=== PATIENT | female | born 1980 | race Caucasian/White ===

== ENCOUNTER 2023-08-06 12:32 | Outpatient (CLI) | payer OTHER, SELFPAY ==
--- NOTE | ~2023-08-06 | MR_ITS ---
EXAMINATION: MR abdomen wo/w con DATE: 08/06/2023 13:23 INDICATION: Liver mass. Right abdominal pain. TECHNIQUE: Magnetic resonance imaging (MRI) of the abdomen was performed without and with 14 mL Multi Leonardo intravenous contrast. COMPARISON: CT abdomen and pelvis 09/30/2018 FINDINGS: There are 13 mm and 5 mm cysts in the liver. There is sludge in the gallbladder which is normal in si ze. The pancreas, spleen, adrenal glands, and right kidney are normal. There is a 6 mm cyst in left k idney. There are no dilated loops of bowel. There is a supraumbilical ventral hernia containing nonob structed transverse colon. There are no pathologically enlarged lymph nodes. There is no ascites. IMPRESSION: 1. Benign cysts in the liver. 2. Supraumbilical ventral hernia containing nonobstructed transverse colon. Reviewed, dictated and finalized at location E. CLERK
== END 2023-08-06 12:33 ==
PROVIDERS: Visit Provider Physician Assistant
DX: K76.9 Liver disease, unspecified (principal); K43.9 Ventral hernia without obstruction or gangrene
CPT/HCPCS: 74183; A9577